=== PATIENT | female | born 1995 | race African-American/Black ===

== ENCOUNTER 2018-03-13 01:00 | Emergency (ER) | payer SELFPAY ==
[2018-03-13] MEDS ORDERED: BENZONATATE 100 MG CAPSULE PO ONE (01:22)
[2018-03-13] MEDS ORDERED: guaiFENesin DM 100 MG/10 MG/5 ML 118ML BOTTLE PO ONE (01:22)
--- NOTE | 2018-03-13 01:31 | ED Physician Documentation ---
General Adult - HISTORIAN Historian: patient - HPI Stated Complaint: Cough X2 days Chief Complaint: Cough/ Upper Respiratory Additional Information: intro self as [employer]. pt presents to the ED via pov c/o cough nasal congestion for 2 days, denies other symptoms or complaints. pt denies current chest pain, dyspnea, syncope/near syncope, headache, dizziness, visual disturbances, n/v/d, fever/chills, rash, sick contacts, dysuria, trauma. melena or hematochezia, bleeding or easy bruising, change in bowel or bladder function, no recent weight loss/gain, anxiety or depression. ROS Negative unless otherwise specified. - ROS CONST: no problems - PAST HX Past History: other (lupus ) Surgeries/Procedures: (2 weeks ago ) Allergies/Adverse Reactions: Allergies Allergy/AdvReac Type Severity Reaction Status Date / Time sulfamethoxazole Allergy Verified 03/13/18 01:23 [From Bactrim] trimethoprim [From Bactrim] Allergy Verified 03/13/18 01:23 Home Medications: Ambulatory Orders Medication Instructions Recorded Aspirin [Uvaldo] 81 mg PO DAILY 03/13/18 Gabapentin [Neurontin] 600 mg PO HS 03/13/18 Hydroxychloroquine Sulfate 200 mg PO DAILY 03/13/18 [Plaquenil] - SOCIAL HX Smoking History: non-smoker Alcohol Use: none Drug Use: none - FAMILY HX Family History: No - VITAL SIGNS Vital Signs: Vital Signs Temp Pulse Resp BP Pulse Ox 98.5 F 62 18 105/62 98 03/13/18 01:04 03/13/18 01:04 03/13/18 01:04 03/13/18 01:04 03/13/18 01:04 - REVIEWED ASSESSMENTS Nursing Assessment Reviewed: Yes Vitals Reviewed: Yes ED Results Lab/Radiology - Orders Orders: ED Orders Category Date Time Status Benzonatate [Tessalon] Med 03/13/18 01:22 Once 100 mg PO NOW ONE guaiFENesin DM [Robitussin Dm] Med 03/13/18 01:22 Once 10 ml PO NOW ONE General Adult Physical Exam - PHYSICAL EXAM GENERAL APPEARANCE: no distress EENT: eye inspection normal, ENT inspection normal, pharynx normal, no signs of dehydration, MILAD, no nystagmus, TM's nml, pharyngeal erythema, purulent nasal drainage NECK: normal inspection, thyroid normal RESPIRATORY: no resp distress, chest non-tender, breath sounds normal CVS: reg rate & rhythm, heart sounds normal, equal pulses, no murmur, no gallop, PMI nml, no JVD, no friction rub, 24 ABDOMEN: soft, no organomegaly, normal bowel sounds, no abdominal bruit, no distension BACK: normal inspection, no CVA tenderness SKIN: normal color, warm/dry, NR, INT, PAL, DR EXTREMITIES: non-tender, normal range of motion, no evidence of injury, no edema, J, [employer] NEURO: oriented X3, motor nml, sensation nml, mood/affect nml Discharge Clincal Impression: URI (upper respiratory infection) Qualifiers: URI type: unspecified URI Qualified Code(s): J06.9 - Acute upper respiratory infection, unspecified Additional Instructions: Rest Increase fluids Prednisone 5 mg taper once daily #6,5,4,3,2,1 Azithromycin 250 mg: Two tabs day one. One tab days 2-5 keeps working days 6-10. Tussin DM 10 ml every 4 hours as needed for cough. Ibuprofen 600 mg every 6 hours for fever/inflammation Tylenol 650 mg every 4-6 hours for pain/fever seek medical care immediately if difficult to wake, difficulty breathing, feeling faint or fainting, increased rash, chest pain, shortness of breath, or fever not controlled by tylenol/motrin or any concern. follow up with primary care next week or before if not improving as expected. PLEASE UNDERSTAND THAT THIS IS AN EMERGENCY EVALUATION FOR YOUR COMPLAINT AND BY NATURE IS LIMITED AND NOT A SUBSTITUTE FOR ONGOING MEDICAL CARE. EVEN THOUGH TEST RESULTS AND TREATMENT PLAN WERE EXPLAINED THERE MAY BE A NEED FOR ADDITIONAL TESTING TO FULLY DETERMINE THE EXTENT OF YOUR ILLNESS/INJURY/OR CONCERN SO YOU SHOULD CONTACT AND OR ESTABLISH WITH A PRIMARY CARE PROVIDER (OR REFERRAL DOCTOR IF APPLICABLE) FOR AN APPOINTMENT SOON POSSIBLE Condition: Good Disposition: 01 HOME, SELF-CARE Decision to Admit: NO Date of Decison to Admit: 03/13/18 Decision Time: 01:27
[2018-03-13 02:41] VITALS: BP 105/62
== END 2018-03-13 01:41 | disposition home or self-care (01) ==
LOC: ED 01:00
DX: J06.9 Acute upper respiratory infection, unspecified (principal)
CPT/HCPCS: 99282; 99283; A9270

== ENCOUNTER 2018-04-06 00:18 | Emergency (ER) | payer SELFPAY ==
[2018-04-06] MEDS ORDERED: EPINEPHrine/PF 1 MG/1 ML 1:1000 SUBCUT ONE (00:30)
[2018-04-06] MEDS ORDERED: methylPREDNISolone ACETATE 80 MG/ML VIAL IM ONE ×2 (00:30→00:32)
[2018-04-06] MEDS ORDERED: EPINEPHrine/PF 1 MG/1 ML 1:1000 ONE (00:32)
--- NOTE | 2018-04-06 00:34 | ED Physician Documentation ---
Allergy Symptoms - HISTORIAN Historian: patient, friend, other (cousin) - HPI Stated Complaint: allergic reaction Chief Complaint: Allergic Reaction Additional Information: ate shrimp approx 2100hrs onset [id number] genl urticaria no resp et al symptoms xc puritis Duration: continues in ED, worse Associated Symptoms: skin rash, facial, itching, trunk, extremities, diffuse redness Shortness of Breath: moderate Trouble Swallowing/ Speaking: none Identified Cause: possibly (has eaten shrimp before w/no reaction) Context: Food Exposure: none - ROS EYES/ENT: none CVS/RESP: none. denies: chest pain, shortness of breath, cough CONST: none MS/SKIN/LYMPH: none NEURO/PSYCH: none - PAST HX Prior Allergic Reaction: none Medical History: other (lupus) Allergies/Adverse Reactions: Allergies Allergy/AdvReac Type Severity Reaction Status Date / Time sulfamethoxazole Allergy Verified 04/06/18 00:30 [From Bactrim] trimethoprim [From Bactrim] Allergy Verified 04/06/18 00:30 Home Medications: Ambulatory Orders Medication Instructions Recorded Aspirin [Uvaldo] 81 mg PO DAILY 03/13/18 Gabapentin [Neurontin] 600 mg PO HS 03/13/18 Hydroxychloroquine Sulfate 200 mg PO DAILY 03/13/18 [Plaquenil] - SOCIAL HX Smoking History: non-smoker Alcohol Use: none Drug Use: none - FAMILY HX Family History: No - VITAL SIGNS Vital Signs: Vital Signs Temp Pulse Resp BP Pulse Ox 97.9 F 83 16 99/62 100 04/06/18 00:25 04/06/18 00:25 04/06/18 00:25 04/06/18 00:25 04/06/18 00:25 - REVIEWED ASSESSMENTS Nursing Assessment Reviewed: Yes Vitals Reviewed: Yes ED Results Lab/Radiology - Orders Orders: ED Orders Category Date Time Status EPINEPHrine/PF [Adrenalin 1:1000] Med 04/06/18 00:30 Once 0.3 mg SUBCUT NOW ONE methylPREDNISolone ACETATE [Depo-Medrol] Med 04/06/18 00:30 Once 80 mg IM NOW ONE Allergy Symptons Exam - EXAM General Appearance: mild distress HEENT: ENT nml inspection, pharynx nml, voice nml, facial. No: angioedema Skin: skin rash, erythema, urticaria Extremities: non-tender, nml ROM Respiratory: no resp. distress, breath sounds nml. No: respiratory distress, stridor, accessory muscle use, decreased air entry, wheezes, rales, rhonchi CVS: reg rate & rhythm, heart sounds normal. No: tachycardia Abdomen: non-tender, no distention Neuro: oriented X3, motor nml, mood/affect nml, other (pt states want to get rid of them right away-use epi-disc w/pt) Discharge Clincal Impression: acute aLLERGIC [id number] Referrals: Primary Doctor,No [Primary Care Provider] - 2 Days Comments: home urt all gone no puritis--pt to get claritin 1 daily 3-4d Condition: Good Disposition: 01 HOME, SELF-CARE Decision to Admit: NO Decision Time: 01:36
[2018-04-06 01:37] VITALS: BP 113/74
== END 2018-04-06 01:36 | disposition home or self-care (01) ==
LOC: ED 00:18
DX: L50.0 Allergic urticaria (principal)
CPT/HCPCS: 96372; 99282; 99284; J0171; J1040

== ENCOUNTER 2019-02-12 16:28 | Emergency (ER) | payer BC ==
[2019-02-12 16:53] VITALS: BP 110/71
[2019-02-12] MEDS ORDERED: GUM MASTIC/STORAX/MSAL/ALCOHOL 1 EACH DROPERETTE TP ONE ×2 (17:17→17:26)
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
[2019-02-12] MEDS ORDERED: KETOROLAC TROMETHAMINE 60 MG/2 ML VIAL IM ONE (17:27)
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
== END 2019-02-12 17:48 | disposition home or self-care (01) ==
LOC: ED 16:28
DX: S63.501A Unspecified sprain of right wrist, initial encounter (principal); S61.210A Laceration without foreign body of right index finger without damage to nail, initial encounter; V49.9XXA Car occupant (driver) (passenger) injured in unspecified traffic accident, initial encounter; Y92.410 Unspecified street and highway as the place of occurrence of the external cause
CPT/HCPCS: 73110; 96372; 99282; 99284; J1885

== ENCOUNTER 2019-03-11 23:01 | Emergency (ER) | payer BC ==
[2019-03-11] MEDS: CLINDAMYCIN HCL 150 MG CAPSULE PO ONE (23:22)
--- NOTE | 2019-03-11 23:24 | ED Physician Documentation ---
Skin Rash - HISTORIAN Historian: patient - HPI Chief Complaint: Skin Rash Additional Information: 23 year old female presents with redness and erythema to the right lower leg- noticed it last week (Wednesday) as a small spot and was seen at the [place] but given one Clindamycin. There is no induration noted; she denies any fever, chills, nausea, vomiting or diarrhea. Onset: days ago Timing: still present Duration: intermittent pain Location: RLE Quality: painful Identified Cause?: No Where: home Context: Medication Exposure: none Context: Food Exposure: none - ROS CONST: none CVS/RESP: none EYES/ENT: none GI/: none MS/SKIN/LYMPH: rash (Right lower extemity) NEURO/PSYCH: none - PAST HX Past History: none Other History: none Surgeries/Procedures: No Immunizations: UTD Allergies/Adverse Reactions: Allergies Allergy/AdvReac Type Severity Reaction Status Date / Time sulfamethoxazole Allergy Verified 03/11/19 23:23 [From Bactrim] trimethoprim [From Bactrim] Allergy Verified 03/11/19 23:23 Home Medications: Ambulatory Orders Medication Instructions Recorded Clindamycin HCl [Cleocin HCl] 300 mg PO QID #28 capsule 03/11/19 NK 03/11/19 - SOCIAL HX Smoking History: non-smoker Alcohol Use: none Drug Use: none - FAMILY HX Family History: none - VITAL SIGNS Vital Signs: Vital Signs Temp Pulse Resp BP Pulse Ox 110/71 02/12/19 17:48 - REVIEWED ASSESSMENTS Nursing Assessment Reviewed: Yes Vitals Reviewed: Yes ED Results Lab/Radiology - Orders Orders: ED Orders Category Date Time Status Clindamycin HCl [Cleocin] Med 03/11/19 23:19 Once 600 mg PO NOW ONE Skin Rash Physical Exam - EXAM General Appearance: no acute distress, alert Skin: warm,dry, skin rash, erythema Location: extremities (right lower leg) Character: erythematous Symptoms: warmth, tenderness, swelling Extremities: nml ROM EENT: eyes nml inspection, lips nml, gums nml, pharynx nml Respiratory: breath sounds normal CVS: heart sounds nml Neuro/Psych: oriented x3, CN's nml as tested, motor nml, sensation nml, mood/affect nml Discharge Clincal Impression: Cellulitis of right lower leg Referrals: Primary Doctor,No [Primary Care Provider] - 2 Days Additional Instructions: Take Clindamycin 300mg by mouth 4 times a day for 7 days Increase fluid intake Alternate Tylenol and Ibuprofen as needed for pain May apply ice pack to the affected area Follow up with PCP in one week for re-evaluation Condition: Good Disposition: 01 HOME, SELF-CARE Decision to Admit: NO Decision Time: 23:26
[2019-03-11 23:33] VITALS: BP 100/63
== END 2019-03-11 23:32 | disposition home or self-care (01) ==
LOC: ED 23:01
DX: L03.115 Cellulitis of right lower limb (principal)
CPT/HCPCS: 99282; 99283; A9270